=== PATIENT | female | born 1995 | race Caucasian/White ===

== ENCOUNTER 2018-05-04 06:52 | Emergency (ER) | payer MEDICAID, OTHER ==
[~2018-05-04] VITALS: Ht 157.5 cm; Wt 57.0 kg
[~2018-05-04 06:52] MED LIST: DICY10CA88 PO; METO-292 PO; ONDA4TAB12 PO; ONDA8TAB6 PO; PROM25SU46 RC; PROM25TA14 PO; SUCR1ORA2 PO
[2018-05-04 07:03] VITALS: BP 109/64
[2018-05-04] MEDS ORDERED: neomy sulf/polymyx B sulf/HC 10ml otic suspension LEFT EAR ONE (07:20)
[2018-05-04] MEDS ORDERED: amox tr/potassium clavulanate 875/125mg TAB PO ONE (07:20)
[2018-05-04] MEDS ORDERED: HYDROcodone/acetaminophen 10/325mg tab PO ONE (07:20)
[2018-05-04] MEDS ORDERED: NEOM10DR45 LEFT EAR (07:42)
[2018-05-04] MEDS ORDERED: HYDR-565 PO (07:42)
[2018-05-04] MEDS ORDERED: AMOX-580 PO (07:42)
== END 2018-05-04 08:03 | disposition home or self-care (01) ==
LOC: ER 06:53
DX: H60.92 Unspecified otitis externa, left ear (principal); J45.909 Unspecified asthma, uncomplicated; F12.90 Cannabis use, unspecified, uncomplicated; Z56.0 Unemployment, unspecified; Z59.0 Homelessness; Z79.899 Other long term (current) drug therapy
CPT/HCPCS: 99284

== ENCOUNTER 2018-05-19 15:44 | Emergency (ER) | payer MEDICAID, OTHER ==
[~2018-05-19] VITALS: Ht 157.5 cm; Wt 56.0 kg
[~2018-05-19 15:44] MED LIST changes: +AMOX-580 PO; +HYDR-565 PO; +NEOM10DR45 LEFT EAR
[2018-05-19] MEDS ORDERED: ibuprofen 200mg tablet PO ONE (16:55)
[2018-05-19] MEDS ORDERED: IBUP-1985 PO (16:58)
[2018-05-19 17:10] VITALS: BP 105/63
== END 2018-05-19 17:12 | disposition home or self-care (01) ==
LOC: ER 15:45
DX: S90.31XA Contusion of right foot, initial encounter (principal); J45.909 Unspecified asthma, uncomplicated; F12.90 Cannabis use, unspecified, uncomplicated; Z88.8 Allergy status to other drugs, medicaments and biological substances; Z79.899 Other long term (current) drug therapy; Z59.0 Homelessness; Z56.0 Unemployment, unspecified; Z98.890 Other specified postprocedural states; W22.8XXA Striking against or struck by other objects, initial encounter; Y93.89 Activity, other specified; Y92.89 Other specified places as the place of occurrence of the external cause; Y99.8 Other external cause status
CPT/HCPCS: 73630; 99284

== ENCOUNTER 2018-07-13 12:23 | Emergency (ER) | payer MEDICAID, OTHER ==
[~2018-07-13] VITALS: Ht 160 cm; Wt 53.4 kg
[~2018-07-13 12:23] MED LIST changes: -AMOX-580 PO; -HYDR-565 PO; +IBUP-1985 PO; -NEOM10DR45 LEFT EAR
[2018-07-13] MEDS ORDERED: ketorolac trometh. 30mg/ml inj. IV ONE (13:00)
[2018-07-13] MEDS ORDERED: LORazepam 2 mg/ml vial IV ONE (13:00)
[2018-07-13] MEDS ORDERED: ondansetron/PF 4mg/2ml inj IV ONE (13:00)
[2018-07-13] MEDS ORDERED: normal saline 1000ML IV soln IVB ONE (13:00)
[2018-07-13 13:03] LABS: BASOPHILS % (AUTO) 0.3 % (0-1); EOSINOPHILS # (AUTO) 0.1 X10'3 (0-0.9); EOSINOPHILS % (AUTO) 0.8 % (0-6); HEMATOCRIT 43.2 % (35.0-45.0); HEMOGLOBIN 14.5 g/dl (12.0-16.0); LYMPHOCYTES # (AUTO) 2.9 X10'3 (1.1-4.8); LYMPHOCYTES % (AUTO) 18.3 % (21-51); MEAN CORPUSCULAR HEMOGLOBIN 31.3 PG (27.0-31.0); MEAN CORPUSCULAR HGB CONC 33.5 % (33.0-36.5); MEAN CORPUSCULAR VOLUME 93.4 FL (78-98); MEAN PLATELET VOLUME 10.6 FL (7.4-10.4); MONOCYTES # (AUTO) 0.9 X10'3 (0-0.9); MONOCYTES % (AUTO) 5.8 % (2-12); NEUTROPHILS # (AUTO) 11.8 X10'3 (1.8-7.7); NEUTROPHILS % (AUTO) 74.8 % (42-75); PLATELET COUNT 235 X10'3 (140-440); RED BLOOD COUNT 4.63 X10'6 (4.20-5.60); RED CELL DISTRIBUTION WIDTH 15.7 % (11.5-14.5); WHITE BLOOD COUNT 15.7 X10'3 (4.5-11.0)
[2018-07-13 13:11] LABS: INR 1.1 INR; PROTHROMBIN TIME 11.1 SECONDS (9.0-12.0)
[2018-07-13 13:17] LABS: ALANINE AMINOTRANSFERASE 20 U/L (12-78); ALBUMIN 4.7 G/DL (3.4-5.0); ALBUMIN/GLOBULIN RATIO 1.6 (1.1-1.5); ALKALINE PHOSPHATASE 63 IU/L (46-116); ANION GAP 18 (8-16); ASPARTATE AMINO TRANSFERASE 13 U/L (10-37); BILIRUBIN,TOTAL 0.6 MG/DL (0.1-1.0); BLOOD UREA NITROGEN 12 MG/DL (7-18); BUN/CREATININE RATIO 11.7 (6.6-38.0); CALCIUM 9.4 MG/DL (8.5-10.1); CHLORIDE 107 MMOL/L (99-107); CREATININE 1.03 MG/DL (0.40-0.90); GLUCOSE 119 MG/DL (70-104); LIPASE 92 U/L (73-393); SODIUM 143 MMOL/L (135-145); TOTAL PROTEIN 7.7 G/DL (6.4-8.2); eGFR 66 ML/MIN
[2018-07-13 13:59] LABS: URINE HCG NEGATIVE (NEG)
[2018-07-13 14:00] LABS: CLARITY,URINE SLIGHTLY CLOUDY (Clear); COLOR,URINE YELLOW (Yellow); GLUCOSE, URINE NEGATIVE (Neg); KETONES,URINE 40 mg/dl (Neg); LEUKOCYTE ESTERASE ,URINE SMALL (Neg); NITRITES, URINE POSITIVE (Neg); OCCULT BLOOD,URINE NEGATIVE (Neg); PROTEIN,URINE NEGATIVE (Neg); UROBILINOGEN,URINE 0.2 E.U/dL (0.2-1.0)
[2018-07-13 14:01] LABS: UA COLLECTION TYPE STRAIGHT CATH
[2018-07-13 14:08] LABS: BACTERIA,URINE 3+ /HPF (Neg); MUCUS STRANDS NONE SEEN /LPF (Neg); RBC,URINE NONE SEEN /HPF (0-2); SQUAMOUS EPITHELIAL CELL,UR MODERATE /LPF (FEW)
[2018-07-13] MEDS: morphine 4 MG/ML inj SYRINge IV PRN ×2 (14:24→15:12)
[2018-07-13 15:09] VITALS: BP 117/77
[2018-07-13] MEDS ORDERED: CefTRIAXone 2gm/D5W 50ml 50 ML IV ONE (15:15)
[2018-07-13] MEDS ORDERED: haloperidol lactate 5mg/ml inj IM ONE (15:35)
[2018-07-13] MEDS ORDERED: diphenhydrAMINE 50 mg/ml inj IV ONE (15:35)
[2018-07-13] MEDS ORDERED: ONDA8TAB9 PO (16:32)
== END 2018-07-13 17:01 | disposition home or self-care (01) ==
LOC: ER 12:23
DX: G43.A1 Cyclical vomiting, in migraine, intractable (principal); D72.829 Elevated white blood cell count, unspecified; N39.0 Urinary tract infection, site not specified; J45.909 Unspecified asthma, uncomplicated; F12.90 Cannabis use, unspecified, uncomplicated; F17.200 Nicotine dependence, unspecified, uncomplicated; Z59.0 Homelessness; Z56.0 Unemployment, unspecified; Z98.890 Other specified postprocedural states
CPT/HCPCS: 36415; 74176; 80053; 81001; 81025; 83690; 85025; 85610; 87077; 87088; 87186; 96361; 96365; 96372; 96375; 96376; 99285; J0696; J1200; J1630; J1885; J2060; J2270; J2405; J7030

== ENCOUNTER 2018-08-02 06:31 | Emergency (ER) | payer MEDICAID ==
[~2018-08-02] VITALS: Ht 160 cm; Wt 55.0 kg
[~2018-08-02 06:31] MED LIST changes: +ONDA8TAB9 PO
[2018-08-02 06:35] VITALS: BP 110/73
[2018-08-02] MEDS ORDERED: ACET-3067 PO (06:45)
[2018-08-02] MEDS ORDERED: PENI500T2 PO (06:45)
== END 2018-08-02 06:55 | disposition home or self-care (01) ==
LOC: ER 06:31
DX: K02.9 Dental caries, unspecified (principal); J45.909 Unspecified asthma, uncomplicated; F12.90 Cannabis use, unspecified, uncomplicated; Z98.890 Other specified postprocedural states; Z56.0 Unemployment, unspecified; Z59.0 Homelessness
CPT/HCPCS: 99283

== ENCOUNTER 2018-08-31 16:00 | Emergency (ER) | payer MEDICAID ==
[~2018-08-31] VITALS: Ht 160 cm; Wt 50.4 kg
[2018-08-31] MEDS ORDERED: normal saline 1000ML IV soln IVB ONE (16:25)
[2018-08-31] MEDS ORDERED: proCHLORperazine 10 MG/2 ml inj IV ONE (16:25)
[2018-08-31] MEDS ORDERED: ondansetron/PF 4mg/2ml inj IV ONE ×2 (16:25→19:30)
[2018-08-31] MEDS ORDERED: LORazepam 2 mg/ml vial IV ONE (16:25)
[2018-08-31 16:40] LABS: BASOPHILS # (AUTO) 0.1 X10'3 (0-0.2); BASOPHILS % (AUTO) 0.3 % (0-1); EOSINOPHILS # (AUTO) 0.3 X10'3 (0-0.9); EOSINOPHILS % (AUTO) 0.9 % (0-6); HEMATOCRIT 44.5 % (35.0-45.0); HEMOGLOBIN 14.6 g/dl (12.0-16.0); LYMPHOCYTES # (AUTO) 2.1 X10'3 (1.1-4.8); MEAN CORPUSCULAR HEMOGLOBIN 30.8 PG (27.0-31.0); MEAN CORPUSCULAR HGB CONC 32.7 % (33.0-36.5); MEAN PLATELET VOLUME 10.2 FL (7.4-10.4); MONOCYTES # (AUTO) 1.6 X10'3 (0-0.9); NEUTROPHILS # (AUTO) 22.9 X10'3 (1.8-7.7); NEUTROPHILS % (AUTO) 84.8 % (42-75); PLATELET COUNT 245 X10'3 (140-440); RED BLOOD COUNT 4.73 X10'6 (4.20-5.60); RED CELL DISTRIBUTION WIDTH 14.7 % (11.5-14.5)
[2018-08-31] MEDS ORDERED: ONDA4TAB9 SL (16:43)
[2018-08-31 16:57] LABS: ALANINE AMINOTRANSFERASE 25 U/L (12-78); ALBUMIN 4.8 G/DL (3.4-5.0); ALBUMIN/GLOBULIN RATIO 1.6 (1.1-1.5); ALKALINE PHOSPHATASE 61 IU/L (46-116); ANION GAP 21 (8-16); ASPARTATE AMINO TRANSFERASE 17 U/L (10-37); BILIRUBIN,TOTAL 0.7 MG/DL (0.1-1.0); BLOOD UREA NITROGEN 14 MG/DL (7-18); BUN/CREATININE RATIO 12.1 (6.6-38.0); CHLORIDE 105 MMOL/L (99-107); CREATININE 1.16 MG/DL (0.40-0.90); GLUCOSE 151 MG/DL (70-104); POTASSIUM 3.6 MMOL/L (3.5-5.1); SODIUM 144 MMOL/L (135-145); TOTAL CARBON DIOXIDE 18.1 MMOL/L (24-32); TOTAL PROTEIN 7.8 G/DL (6.4-8.2); eGFR 57 ML/MIN
[2018-08-31 17:11] LABS: PLATELET ESTIMATE NORMAL; TOTAL CELLS COUNTED 100
[2018-08-31 18:03] VITALS: BP 122/65
[2018-08-31 18:17] LABS: URINE HCG NEGATIVE (NEG)
[2018-08-31] MEDS ORDERED: PHE12.5T PO (18:22)
[2018-08-31 18:24] LABS: COLOR,URINE YELLOW (Yellow); GLUCOSE, URINE NEGATIVE (Neg); KETONES,URINE >=80 mg/dl (Neg); LEUKOCYTE ESTERASE ,URINE NEGATIVE (Neg); NITRITES, URINE NEGATIVE (Neg); OCCULT BLOOD,URINE MODERATE (Neg); PH,URINE 8.5 (4.8-8.0); PROTEIN,URINE TRACE mg/dl (Neg); UROBILINOGEN,URINE 0.2 E.U/dL (0.2-1.0)
[2018-08-31] MEDS ORDERED: haloperidol lactate 5mg/ml inj IM ONE (18:30)
[2018-08-31] MEDS ORDERED: diphenhydrAMINE 50 mg/ml inj IV ONE (18:30)
[2018-08-31 18:42] LABS: CLARITY,URINE SLIGHTLY CLOUDY (Clear); UA COLLECTION TYPE STRAIGHT CATH
[2018-08-31 18:47] LABS: WBC,URINE 0-4 /HPF (0-4)
[2018-08-31 18:49] LABS: BACTERIA,URINE FEW /HPF (Neg); MUCUS STRANDS FEW /LPF (Neg); SQUAMOUS EPITHELIAL CELL,UR FEW /LPF (FEW)
[2018-08-31] MEDS ORDERED: normal saline 1000ml 1,000 ML IV ONE (19:30)
[2018-08-31] MEDS ORDERED: dextrose 50%-water 50ml dispensing syringe IV ONE (19:35)
[2018-08-31 20:34] LABS: URINE AMPHETAMINE SCREEN NEGATIVE (Neg); URINE BARBITUATE SCREEN NEGATIVE (Neg); URINE BENZODIAZEPINES SCREEN NEGATIVE (Neg); URINE CANNABINOID SCREEN POSITIVE (Neg); URINE COCAINE SCREEN NEGATIVE (Neg); URINE METHADONE SCREEN NEGATIVE (Neg); URINE OPIATE SCREEN NEGATIVE (Neg); URINE PHENCYCLIDINE SCREEN NEGATIVE (Neg)
== END 2018-08-31 21:49 | disposition home or self-care (01) ==
LOC: ER 16:00
DX: G43.A0 Cyclical vomiting, in migraine, not intractable (principal); J45.909 Unspecified asthma, uncomplicated; F12.90 Cannabis use, unspecified, uncomplicated; Z98.890 Other specified postprocedural states; Z59.0 Homelessness; Z56.0 Unemployment, unspecified; Z79.899 Other long term (current) drug therapy
CPT/HCPCS: 36415; 80053; 80305; 81001; 81025; 82948; 85025; 96361; 96372; 96374; 96375; 96376; 99284; J0780; J1200; J1630; J2060; J2405